=== PATIENT | female | born 1960 | race Caucasian/White ===

== ENCOUNTER 2016-08-01 10:29 | Emergency (ER) | payer BC ==
[2016-08-01 10:40] VITALS: BP 126/86; PULSE 80; TEMP 97.8; BMI 26.0
--- NOTE | 2016-08-01 10:53 | PDOC ---
History of Present Illness - General Chief Complaint: Pain Stated Complaint: PAIN Time Seen by Provider: 08/01/16 10:52 History Source: Patient Exam Limitations: No Limitations - History of Present Illness Initial Comments: CHIEF COMPLAINT: 55 y/o afebrile female with PMH RA c/o left neck, upper back and arm pain since yesterday. HISTORY OF PRESENT ILLNESS: The patient does admit she has been pulling a very heavy work suitcase around with her left arm for the past few weeks and she start feeling a tightness in her left shoulder and neck a few days ago. She has been taking motrin with very little relief. The patient denies trauma, fall , LOC, THOMPSON, changes in vision/hearing, decreased ROM of left arm. Vital signs on arrival are within normal limits. REVIEW OF SYSTEMS: GENERAL/CONSTITUTIONAL: No fever/chills. No weakness. No weight change. GENITOURINARY: No dysuria, frequency, or change in urination. MUSCULOSKELETAL: +left arm and neck pain. +left upper back pain. SKIN: No rash or easy bruising. NEUROLOGIC: No headache, vertigo, loss of consciousness, or loss of sensation. PHYSICAL EXAM: GENERAL: The patient is awake, alert, and fully oriented, in no acute distress. HEAD: Normal with no signs of trauma. NECK: No midline cervical spine TTP or step offs. Full flexion, extension and lateral movements of neck. Pain reproduced with lateral neck movement towards left shoulder. TTP of left cervical paravertebral muscles as well as muscles along left medial scapular border. EYES: Pupils equal, round and reactive to light, extraocular movements intact, sclera anicteric, conjunctiva clear. EXTREMITIES: Normal range of motion, no edema. No TTP of left AC joint. No clavicular tenting. Full ROM of left arm. Equal content designer strength b/l. Equal shoulder shrug b/l. NEUROLOGICAL: Normal speech, normal gait. CN II-XII grossly intact. SKIN: Warm, Dry, normal turgor, no rashes or lesions noted. Past History - Past Medical History Allergies/Adverse Reactions: Allergies Allergy/AdvReac Type Severity Reaction Status Date / Time No Known Allergies Allergy Verified 08/01/16 10:40 Home Medications: Ambulatory Orders Methocarbamol [Robaxin -] 1,000 mg PO TID #20 tablet 08/01/16 Other medical history: arthritis - Immunization History Immunization Up to Date: Yes - Psycho/Social/Smoking Cessation Hx Anxiety: No Suicidal Ideation: No Smoking History: Current every day smoker Have you smoked in the past 12 months: No Number of Cigarettes Smoked Daily: 15 Information on smoking cessation initiated: No Hx Alcohol Use: No Drug/Substance Use Hx: No Substance Use Type: None *Physical Exam - Vital Signs Last Vital Signs Temp Pulse Resp BP Pulse Ox 97.8 F 80 18 126/86 100 08/01/16 10:36 08/01/16 10:36 08/01/16 10:36 08/01/16 10:36 08/01/16 10:36 Medical Decision Making - Medical Decision Making A/P: 55 y/o afebrile female with left cervical radiculopathy and left arm and shoulder pain. Will discharge to home with rx for robaxin. INformed her it may cause drowsiness. Suggested she continue taking motrin with the robaxin, apply heat and massage to affected area, and stretch neck hourly. Instructed her to f/u with her doctor and return to the ER with any worsening or concerning symptoms. The patient verbalizes understanding of all instructions, has no further questions and is awaiting discharge. *DC/Admit/Observation/Transfer Diagnosis at time of Disposition: Cervical radiculopathy, Muscle spasm - Discharge Dispostion Disposition: HOME Condition at time of disposition: Good - Prescriptions Prescriptions: Methocarbamol [Robaxin -] 1,000 mg PO TID #20 tablet - Patient Instructions Printed Discharge Instructions: DI for Cervical Radiculopathy, DI for Back Spasm Additional Instructions: Discharge Instructions: -Take 800mg of Motrin every 8 hours with food -Take Robaxin as prescribed with motrin; may cause drowsiness -Stretch your neck and arm hourly -Apply heating pad and massage to affected area -Return to the ER with any worsening or concerning symptoms. - Post Discharge Activity Work/School Note: Back to Work
[2016-08-01] MEDS ORDERED: METHOCARBAMOL 500 MG TABLET PO ONE (11:04)
[2016-08-01] MEDS ORDERED: METHOCARBAMOL 500 MG TABLET ONE (11:09)
== END 2016-08-01 11:11 | disposition home or self-care (01) ==
LOC: JERFT 10:29 → JER 10:29 → JERFT 11:11
DX: M54.12 Radiculopathy, cervical region (principal); F17.210 Nicotine dependence, cigarettes, uncomplicated; X50.0XXA Overexertion from strenuous movement or load, initial encounter; Y93.89 Activity, other specified; Y92.89 Other specified places as the place of occurrence of the external cause
CPT/HCPCS: 99281-25

== ENCOUNTER 2016-08-02 15:19 | Emergency (ER) | payer BC ==
[2016-08-02 15:45] VITALS: BP 142/81; PULSE 73; TEMP 97.4; BMI 25.7
--- NOTE | 2016-08-02 16:11 | PDOC ---
[id number] 4d REVISIT/ BACK PAIN Time Seen by Provider: 08/02/16 15:55 History Source: Patient Exam Limitations: No Limitations - History of Present Illness Initial Comments: 08/02/16 16:06 55 yr female seen in ER yesterday for same. Pt woke up tuesday morning with stiff neck. Pt denies trauma states the robaxin is not helping and the motrin relieves pain "a little" Pt states pain with moving neck to the left side and flexion. Past History - Past Medical History Allergies/Adverse Reactions: Allergies Allergy/AdvReac Type Severity Reaction Status Date / Time No Known Allergies Allergy Verified 08/01/16 10:40 Home Medications: Ambulatory Orders Methocarbamol [Robaxin -] 1,000 mg PO TID #20 tablet 08/01/16 Diazepam [Valium] 5 mg PO Q8H PRN #6 tablet MDD 15mg 08/02/16 Ibuprofen 800 mg PO TID PRN #20 tablet 08/02/16 Methylprednisolone [Medrol Dose Bg] 4 mg PO ASDIR #21 tablet 08/02/16 GI Disorders: Yes (gastritis) Other medical history: RA - Surgical History Appendectomy: Yes - Immunization History Immunization Up to Date: Yes - Psycho/Social/Smoking Cessation Hx Anxiety: No Suicidal Ideation: No Smoking History: Current every day smoker Have you smoked in the past 12 months: No Number of Cigarettes Smoked Daily: 10 Information on smoking cessation initiated: No Hx Alcohol Use: No Drug/Substance Use Hx: No Substance Use Type: None Trauma Specific PMHX - Complaint Specific PMHX Arthritis: No Back Injury: No Neck Injury: No Hx Sacro Iliac Joint Dysfunction: No Review of Systems - Review of Systems Able to Perform ROS?: Yes Is the patient limited Japanese proficient: No Constitutional: No: Symptoms Reported HEENTM: No: Symptoms Reported Respiratory: No: Symptoms reported Cardiac (ROS): No: Symptoms Reported ABD/GI: No: Symptoms Reported : No: Symptoms Reported Musculoskeletal: Yes: See HPI, Neck Pain Integumentary: No: Symptoms Reported Neurological: No: Symptoms reported *Physical Exam - Vital Signs Last Vital Signs Temp Pulse Resp BP Pulse Ox 97.4 F L 73 20 142/81 100 08/02/16 15:42 08/02/16 15:42 08/02/16 15:42 08/02/16 15:42 08/02/16 15:42 - Physical Exam General Appearance: Yes: Nourished, Appropriately Dressed HEENT: positive: EOMI, SERG, Normal ENT Inspection, TMs Normal, Pharynx Normal Neck: positive: Supple, Decreased range of motion (pain to left trapezius muscle with extension of neck and with turning to left side). negative: Lymphadenopathy (R), Lymphadenopathy (L) Respiratory/Chest: positive: Lungs Clear, Normal Breath Sounds Cardiovascular: positive: Regular Rhythm, Regular Rate Gastrointestinal/Abdominal: positive: Normal Bowel Sounds, Soft Musculoskeletal: positive: Normal Inspection, Muscle Spasm (left upper trapezius ). negative: CVA Tenderness (R), CVA Tenderness (L), Decreased Range of Motion , Vertebral Tenderness Extremity: positive: Normal Capillary Refill, Normal Inspection, Normal Range of Motion Integumentary: positive: Normal Color, Dry, Warm Neurologic: positive: Fully Oriented, Alert, Normal Mood/Affect, Normal Response , Motor Strength 5/5 ED Treatment Course - RADIOLOGY Radiology Studies Ordered: Category Date Time Status SPINE-CERVICAL [RAD] Stat Radiology 08/02/16 16:03 Ordered Medical Decision Making - Medical Decision Making 08/02/16 16:07 cc: upper back pain and neck pain for 3 days worse with movement of neck. no fever no sore throat or diff swallowing or breathing. will get xray of cervical spine 08/02/16 16:12 08/06/16 14:48 *DC/Admit/Observation/Transfer Diagnosis at time of Disposition: Muscle spasm, Cervical radiculopathy - Discharge Dispostion Disposition: HOME Condition at time of disposition: Stable - Prescriptions Prescriptions: Ibuprofen 800 mg PO TID PRN #20 tablet PRN Reason: Moderate Pain Methylprednisolone [Medrol Dose Bg] 4 mg PO ASDIR #21 tablet Diazepam [Valium] 5 mg PO Q8H PRN #6 tablet MDD 15mg PRN Reason: Muscle Spasms - Referrals Referrals: Darrell Vivar MD [Staff Physician] - - Patient Instructions Additional Instructions: frequent warm compresses , apply Icy Hot or BioFreeze rubbing ointment to the area of pain take Valium for spasm as directed DO NOT TAKE ROBAXIN Valium may make you drowsy do not drive, drink alcohol or operate machinery take the medrol dose pack as directed follow with the orthopedist for follow up call today to make appointment
== END 2016-08-02 16:49 | disposition home or self-care (01) ==
LOC: JERFT 15:19
DX: M54.12 Radiculopathy, cervical region (principal); M62.838 Other muscle spasm
CPT/HCPCS: 72050-TC; 99281-25

== ENCOUNTER 2018-06-22 18:42 | Emergency (ER) | payer BC, OTHER ==
[2018-06-22 18:52] VITALS: BMI 19.5
--- NOTE | 2018-06-22 19:07 | PDOC ---
History of Present Illness - General Chief Complaint: Syncope/Near Syncope Stated Complaint: SYNCOPE Time Seen by Provider: 06/22/18 19:06 History Source: Patient Exam Limitations: No Limitations - History of Present Illness Initial Comments: 06/22/18 19:08 57 year old w/ a history of RA and gastritis who presents post op day #3 from total L hip replacement, discharged this morning from [facility] and presents with an approx 4min witnessed episode of loss of consciousness /shaking that occurred while at home and sitting in a chair. The patient reported that she felt diaphoretic and shortness of breath prior to episode and had urinary incontinence during the episode. The patient did not have confusion after the episode. She denied any chest pain, abdominal pain, recent fever, dysuria, hematuria. She does not some redness and warmth around the surgical site that started this AM. She has no other complaints at bedside. Patient smokes 5 cigarettes a day, last smoked this AM Past History - Past Medical History Allergies/Adverse Reactions: Allergies Allergy/AdvReac Type Severity Reaction Status Date / Time No Known Allergies Allergy Verified 06/22/18 18:53 Home Medications: Ambulatory Orders Albuterol Sulfate Inhaler - [Ventolin Hfa Inhaler -] 2 inh PO Q4H PRN 06/23/18 Aspirin [Aspirin EC] 325 mg PO DAILY 06/23/18 Celecoxib [Celebrex -] 200 mg PO BID 06/23/18 Famotidine [Pepcid -] 20 mg PO BID 06/23/18 Fluticasone Propionate [Flovent Diskus] 250 mcg IH BID 06/23/18 Gabapentin 100 mg PO TID 06/23/18 Ketorolac Tromethamine 10 mg PO Q6H PRN 06/23/18 Methocarbamol [Robaxin -] 500 mg PO DAILY 06/23/18 Ondansetron [Zofran Odt -] 4 mg SL Q8H PRN 06/23/18 Oxycodone HCl 5 mg PO Q8H PRN 06/23/18 Polyethylene Glycol 3350 17 gm PO DAILY 06/23/18 Sennosides [Senokotxtra] 17.2 mg PO HS 06/23/18 Tofacitinib Citrate [Xeljanz Xr] 11 mg PO DAILY 06/23/18 COPD: No GI Disorders: Yes (gastritis) Other medical history: rheumathoid arthritis - Surgical History Appendectomy: Yes - Immunization History Immunization Up to Date: Yes - Suicide/Smoking/Psychosocial Hx Smoking History: Current every day smoker Have you smoked in the past 12 months: No Number of Cigarettes Smoked Daily: 10 Information on smoking cessation initiated: No Hx Alcohol Use: No Drug/Substance Use Hx: No Substance Use Type: None Review of Systems - Review of Systems Able to Perform ROS?: Yes Is the patient limited Luxembourgish proficient: No Constitutional: Yes: Diaphoresis. No: Chills, Fever HEENTM: No: Blurred Vision, Tinnitus Respiratory: No: Cough, Orthopnea, Shortness of Breath Cardiac (ROS): Yes: Syncope. No: Chest Pain, Lightheadedness, Palpitations ABD/GI: Yes: Constipated. No: Diarrhea, Nausea, Vomiting : No: Burning, Dysuria, Hematuria Musculoskeletal: No: Gout, Muscle Pain, Muscle Weakness Neurological: No: Headache, Numbness, Tingling *Physical Exam - Vital Signs Last Vital Signs Temp Pulse Resp BP Pulse Ox 78 16 119/76 100 06/22/18 18:49 06/22/18 18:49 06/22/18 18:49 06/22/18 18:49 - Physical Exam Comments: 06/22/18 20:31 GENERAL: Awake, alert, and fully oriented, in no acute distress HEAD: No signs of trauma, normocephalic, atraumatic EYES: EOMI, sclera anicteric, conjunctiva clear ENT: oropharynx clear without exudates. Moist mucosa NECK: Normal ROM, supple LUNGS: No distress, speaks full sentences, slightly coarse breath sounds auscultation bilaterally HEART: Regular rate and rhythm, normal S1 and S2, no murmurs, rubs or gallops, peripheral pulses normal and equal bilaterally. ABDOMEN: Soft, nontender, normoactive bowel sounds. No guarding, no rebound. No masses EXTREMITIES : Normal inspection, Normal range of motion, no edema. No clubbing or cyanosis. L hip surgical dressings w/ erythema and warmth around wound site, but dressing clean dry and intact NEUROLOGICAL: Cranial nerves II through XII grossly intact. Normal speech, no focal sensorimotor deficits SKIN: Warm, Dry, normal turgor, no rashes or lesions noted 06/22/18 21:20 ED Treatment Course - LABORATORY CBC & Chemistry Diagram: 06/22/18 19:53 06/22/18 19:48 Medical Decision Making - Medical Decision Making 06/22/18 20:33 57 year old w/ a history of RA and gastritis who presents post op day #3 from total L hip replacement, discharged this morning from [facility] and presents with an approx 4min witnessed episode of loss of consciousness /shaking that occurred while at home and sitting in a chair. The patient reported that she felt diaphoretic and shortness of breath prior to episode and had urinary incontinence during the episode. ED Course: consider acs vs arrythmia vs PE vs seizure vs electrolyte derangement vs orthostatic cbc, cmp, ddimer, cta chest, ekg, trop, EKG: normal sinus rhythm HR 83, no interval abnormalities, narrow QRS, ST and T wave segments and morphology normal. 06/22/18 21:32 ddimer elevated, cbc, cmp wnl 06/22/18 22:42 patient reports that last time she had contrast she had heart palpitations will hold CTA at this time and will plan for V/Q scan Patient will need to be transferred to [facility] for post op infection and can have V/Q scan done emergently at that tertiary facility 06/23/18 01:09 Patient to transfer to [facility] for further workup and management. 06/23/18 01:37 Patient reassessed feels clammy and diaphoretic fingerstick and ekg Patient without EKG changes, fingerstick in the 100s Patient stable for transfer. *DC/Admit/Observation/Transfer Diagnosis at time of Disposition: Post op infection, Syncope - Discharge Dispostion Disposition: TRANSFER ACUTE CARE/OTHER HOSP Condition at time of disposition: Stable Decision to Admit order: No - Referrals Referrals: ON STAFF,NOT [Primary Care Provider] - - Patient Instructions - Post Discharge Activity - Transfer to Acute Care Facility Receiving Facility: [place] Accepting Physician:: Isac
--- NOTE | 2018-06-22 19:08 | PDOC ---
Attending Attestation - HPI HPI: The patient is a 57 year old female (current smoker- 5 cigarettes per day), with a significant PMH of gastritis and rheumatoid arthritis, who presents to the emergency department today complaining of one episode loss of consciousness with shaking for one day. Patient reports one witnessed episode of losing consciousness and shaking earlier today that lasted for 4 minutes, where she was at home and sitting in a chair. Patient reports urinary incontinence during the episode, and feeling intermittently SOB since . She denies falling or head contusion. Patient She does report being discharged earlier today from [place] for a left total hip replacement, and notes this is her third day post- op. Patient complains that her left hip is warm to touch, red, and swollen. Patient was given 325 aspirin after surgery. She denies having a bowel movement the last few days. The patient denies chest pain, headache and dizziness. Denies fever, nausea, vomit, diarrhea and constipation. Denies dysuria, frequency, and hematuria. Allergies: NKA Past surgical history: Appendectomy and left total hip replacement (done 3 days ago) Social history: No reported PCP: Dr. Steel ([facility]) ([phone]) Surgical orthopedist: Dr. Andrés Espana ([phone]) 06/22/18 23:00 - Physicial Exam PE: GENERAL: Awake, alert, and fully oriented, in no acute distress HEAD: No signs of trauma EYES: PERRLA, EOMI, sclera anicteric, conjunctiva clear ENT: Auricles normal inspection, hearing grossly normal, nares patent, oropharynx clear without exudates. Moist mucosa NECK: Normal ROM, supple, no lymphadenopathy, JVD, or masses LUNGS: Breath sounds equal, clear to auscultation bilaterally. No wheezes, and no crackles HEART: Regular rate and rhythm, normal S1 and S2, no murmurs, rubs or gallops ABDOMEN: Soft, nontender, normoactive bowel sounds. No guarding, no rebound. No masses EXTREMITIES: +Left hip dressing place, with cellulitis around incision sites and lateral left leg. +Lymphangitic spread down left leg toward mid thigh. Normal range of motion, no edema. No clubbing or cyanosis. No cords, erythema, or tenderness NEUROLOGICAL: Cranial nerves II through XII grossly intact. Normal speech, normal gait SKIN: +Left hip dressing place, with cellulitis around incision sites and lateral left leg. +Lymphangitic spread down left leg toward mid thigh. Warm, Dry , normal turgor, no lesions noted. 06/22/18 23:01 - Medical Decision Making 10:44pm- paged [facility] transfer center- awaiting approval for transfer and call back from Dr. Espana 10:59pm- spoke with patient's PCP, agrees with transfer 11:30pm- paged [facility] transfer bard- requesting to speak to IM doc 12:00am- paged [facility] transfer center- requesting ER to ER 12:30am- paged [facility] transfer bard- awaiting call back from ER doc 12:54am- paged Dr. Espana's call service- awaiting call back 12:58am- spoke with [facility] ER Doc concerning patient's transfer Documentation prepared by PADMAJA Vail, acting as medical videographer for Ana Ortez DO. 06/23/18 00:53 <Deisy Bhardwaj - Last Filed: 06/23/18 00:53> - Resident Resident Name: Chantal Yan - ED Attending Attestation I have performed the following: I have examined & evaluated the patient, The case was reviewed & discussed with the resident, I agree w/resident's findings & plan, Exceptions are as noted - Medical Decision Making 06/22/18 19:08 I, Dr. Ana Ortez DO, attest that this document has been prepared under my direction and personally reviewed by me in its entirety. I further attest, that it accurately reflects all work, treatment, procedures and medical decision -making performed by me. 06/22/18 22:41 a/p: 57yo female s/p L hip replacement 2 days ago with worsening leg pain, sob, back pain, and a syncopal episode -concern for PE as cause of syncope -also with redness, spreading of the down the leg and warmth, no drainage -concern for local cellulitis, post op infection -will send labs, ct chest, ekg -will give ivf hydraiton, toradol for pain -will monitor and reassess 06/22/18 22:44 dimer positive pt denies cp 06/22/18 22:[address] [place], but states palpitations with past ct will start abx for post op infection with streaking down the leg call placed to her surgeon at [facility] 06/22/18 22:59 case discussed with pts PMD at [facility] who agrees that patient will need transfer back to [facility]- but she doesn't admit, call placed to the transfer center awaiting call back from surgeon 06/23/18 01:[address] Chau- ED physician at [facility] who accepts pt in transfer pt has signed the transfer consent empress called to assist with transfer 06/23/18 01:42 pt again feels diaphoretic and sob repeat gluc 95 ekg and cxr ordered 06/23/18 01:53 cxr clear <Ana Ortez - Last Filed: 06/23/18 01:53> Heart Score/ECG Review - ECG Intrepretation Comment:: 06/22/18 20:20 sinus at 83, nl axis, nl interval, septal q waves which are age indeterminate- no prior to compare it to, no acute st/t wave findings <Ana Ortez - Last Filed: 06/23/18 01:53>
[2018-06-22 20:06] LABS: BASO % 0.3 % (0-2.0); EOS % 0.9 % (0-4.5); HEMATOCRIT 36.8 % (32.4-45.2); HEMOGLOBIN 12.4 GM/dL (10.7-15.3); LYMPH % 14.9 % (8-40); MCH 30.9 pg (25.7-33.7); MCHC 33.7 g/dl (32.0-36.0); MEAN CELL VOLUME 91.7 fl (80-96); MEAN PLT VOLUME 7.5 fl (7.5-11.1); MONO % 6.2 % (3.8-10.2); NEUT % 77.7 % (42.8-82.8); PLATELET COUNT 199 K/MM3 (134-434); RBC 4.01 M/mm3 (3.60-5.2); RDW 13.5 % (11.6-15.6)
[2018-06-22 20:20] LABS: INR 1.03 (0.83-1.09); PROTHROMBIN TIME (PATIENT) 12.1 SEC (9.7-13.0)
[2018-06-22 20:25] LABS: ACTIVATED PTT 25.6 SECONDS (25.2-36.5)
[2018-06-22] MEDS ORDERED: ACETAMINOPHEN 1000 MG/100 ML VIAL (NON FORMULARY) IVPB ONE (20:53)
[2018-06-22] MEDS ORDERED: KETOROLAC TROMETHAMINE 15 MG/ML VIAL IVPUSH ONE (21:19)
[2018-06-22] MEDS ORDERED: SODIUM CHLORIDE 1,000 ML IV SCH (21:30)
[2018-06-22 21:31] LABS: ALK PHOS 114 U/L (45-117); ANION GAP 9 MMOL/L (8-16); BILIRUBIN,TOTAL 0.8 mg/dL (0.2-1); BLOOD UREA NITROGEN 10 mg/dL (7-18); CALCIUM 8.2 mg/dL (8.5-10.1); CHLORIDE 103 mmol/L (98-107); CO2 23 mmol/L (21-32); CREATININE 0.7 mg/dL (0.55-1.3); GLUCOSE,RANDOM 96 mg/dL (74-106); POTASSIUM 3.9 mmol/L (3.5-5.1); SGOT/AST 34 U/L (15-37); SGPT/ALT 15 U/L (13-61); SODIUM 135 mmol/L (136-145); TOT PROT 6.1 g/dl (6.4-8.2)
[2018-06-22] MEDS ORDERED: KETOROLAC TROMETHAMINE 15 MG/ML VIAL ONE (21:49)
[2018-06-22] MEDS ORDERED: ACETAMINOPHEN INJECTION 100 ML IVPB ONE (21:50)
[2018-06-22] MEDS ORDERED: VANCOMYCIN 1,000 MG in DEXTROSE 5%-WATER - 250 ML IVPB ONE (22:40)
[2018-06-22] MEDS ORDERED: VANCOMYCIN 1 GRAM (PRE-DOCKED) 1,000 MG/250 ML BAG IVPB ONE ×2 (23:19→23:24)
[2018-06-23] MEDS ORDERED: morphine CARPU-JECT 4 MG/1 ML DISP.SYRIN IVPUSH ONE (00:27)
[2018-06-23 02:43] VITALS: BP 121/76; PULSE 72; TEMP 98
--- NOTE | 2018-06-23 12:14 | EKG ---
Test Reason : Blood Pressure : / mmHG Vent. Rate : 071 BPM Atrial Rate : 071 BPM P-R Int : 170 ms QRS Dur : 080 ms QT Int : 424 ms P-R-T Axes : 057 058 051 degrees QTc Int : 460 ms NORMAL SINUS RHYTHM SEPTAL INFARCT , AGE UNDETERMINED ABNORMAL ECG NO PREVIOUS ECGS AVAILABLE Confirmed by ARVIN JAMES MD ([id number]) on 06/23/2018 12:13:39 PM Referred By: Confirmed By:ARVIN JAMES MD
--- NOTE | 2018-06-23 12:22 | EKG ---
Test Reason : Blood Pressure : / mmHG Vent. Rate : 083 BPM Atrial Rate : 083 BPM P-R Int : 160 ms QRS Dur : 076 ms QT Int : 380 ms P-R-T Axes : 056 066 055 degrees QTc Int : 446 ms NORMAL SINUS RHYTHM SEPTAL INFARCT , AGE UNDETERMINED ABNORMAL ECG NO PREVIOUS ECGS AVAILABLE Confirmed by ARVIN JAMES MD ([id number]) on 06/23/2018 12:22:33 PM Referred By: PAULINA Confirmed By:ARVIN JAMES MD
== END 2018-06-23 02:36 | disposition short-term general hospital (02) ==
LOC: JER 18:42
PROC: 3E03329 Introduction of Other Anti-infective into Peripheral Vein, Percutaneous Approach (ICD-10-PCS; principal; 2018-06-22)
PROC: 3E033NZ Introduction of Analgesics, Hypnotics, Sedatives into Peripheral Vein, Percutaneous Approach (ICD-10-PCS; 2018-06-22)
PROC: 3E0333Z Introduction of Anti-inflammatory into Peripheral Vein, Percutaneous Approach (ICD-10-PCS; 2018-06-22)
DX: T81.41XA Infection following a procedure, superficial incisional surgical site, initial encounter (principal); Z96.641 Presence of right artificial hip joint
CPT/HCPCS: 36415; 71045-TC-FY; 80053; 82962; 84484; 85025; 85379; 85610; 85730; 93005; 93010; 99284-25; J0131; J7030

== ENCOUNTER 2018-07-26 14:42 | Emergency (ER) | payer OTHER ==
[2018-07-26] MEDS ORDERED: ASPIRIN 81 MG CHEWABLE TABLETS PO ONE (14:49)
--- NOTE | 2018-07-26 14:49 | PDOC ---
Rapid Medical Evaluation Time Seen by Provider: 07/26/18 14:47 Medical Evaluation: Allergies Allergy/AdvReac Type Severity Reaction Status Date / Time No Known Allergies Allergy Verified 06/22/18 18:53 07/26/18 14:47 HPI: 1 months s/p L CARLOTTA with lightheadedness and SOB PE: Anxious Orders: Cardiac work up Discharge Disposition - Diagnosis SOB (shortness of breath) - Referrals - Patient Instructions - Post Discharge Activity
[2018-07-26 14:52] VITALS: BP 115/57; PULSE 94; TEMP 97.3; BMI 23.0
[2018-07-26 15:33] LABS: BASO % 1.1 % (0-2.0); EOS % 1.5 % (0-4.5); HEMATOCRIT 42.2 % (32.4-45.2); HEMOGLOBIN 14.3 GM/dL (10.7-15.3); LYMPH % 40.5 % (8-40); MCH 30.3 pg (25.7-33.7); MEAN CELL VOLUME 89.1 fl (80-96); MEAN PLT VOLUME 7.3 fl (7.5-11.1); NEUT % 51.9 % (42.8-82.8); PLATELET COUNT 389 K/MM3 (134-434); RBC 4.74 M/mm3 (3.60-5.2); RDW 13.5 % (11.6-15.6); WHITE BLOOD COUNT 9.9 K/mm3 (4.0-10.0)
--- NOTE | 2018-07-26 15:36 | PDOC ---
History of Present Illness - General History Source: Patient Exam Limitations: No Limitations - History of Present Illness Initial Comments: 07/26/18 15:37 57 year old woman (current smoker- 5 cigarettes per day), with a significant PMH of gastritis, rheumatoid arthritis, and L total hip replacement 1 month ago who presents feeling lightheaded, nauseous, short of breath and tingling in the hadns that occurred while at the grocery store and lasting for 2-5min. She felt like she might pass out so she called EMS. She reports that she had overworked herself at physical therapy today and was commuting and wlkaing around for most of the day and had not eaten anything since this morning. After EMS was called she had resolution of symptoms and upon arrival to the ED she ate a bagel and began feeling much better. She believes her symptoms were most likely part panic attack and part dehydration as she has been anxious lately due to being cooped in her house for rehab of her hip. She deneis any recent fever, chest pain, abdominal pain, v/d/c. She has no other complaints at bedside. Of note in history patient was seen her 1 month ago for loc, had an elevated ddimer and concern over surgical site infection and was transferred to [facility] was negative PE workup and without abx admin. She has been stable since discharge but notes some occasional variabilty in BP over the past month. She is not currently on AC She attend PE regularly <Chantal Yan - Last Filed: 07/26/18 16:05> <Pratik Christine - Last Filed: 07/26/18 17:44> - General Chief Complaint: Syncope/Near Syncope Stated Complaint: SOB Time Seen by Provider: 07/26/18 14:47 Past History - Past Medical History COPD: No GI Disorders: Yes (gastritis) Psychiatric Problems: Yes (ANXIETY) - Surgical History Appendectomy: Yes - Immunization History Immunization Up to Date: Yes - Suicide/Smoking/Psychosocial Hx Smoking History: Never smoked Have you smoked in the past 12 months: No Number of Cigarettes Smoked Daily: 10 Hx Alcohol Use: No Drug/Substance Use Hx: No Substance Use Type: None <Chantal Yan - Last Filed: 07/26/18 16:05> <Pratik Christine - Last Filed: 07/26/18 17:44> - Past Medical History Allergies/Adverse Reactions: Allergies Allergy/AdvReac Type Severity Reaction Status Date / Time No Known Allergies Allergy Verified 07/26/18 14:48 Home Medications: Ambulatory Orders Albuterol Sulfate Inhaler - [Ventolin Hfa Inhaler -] 2 inh PO Q4H PRN 06/23/18 Aspirin [Aspirin EC] 325 mg PO DAILY 06/23/18 Celecoxib [Celebrex -] 200 mg PO BID 06/23/18 Famotidine [Pepcid -] 20 mg PO BID 06/23/18 Fluticasone Propionate [Flovent Diskus] 250 mcg IH BID 06/23/18 Gabapentin 100 mg PO TID 06/23/18 Ketorolac Tromethamine 10 mg PO Q6H PRN 06/23/18 Methocarbamol [Robaxin -] 500 mg PO DAILY 06/23/18 Ondansetron [Zofran Odt -] 4 mg SL Q8H PRN 06/23/18 Oxycodone HCl 5 mg PO Q8H PRN 06/23/18 Polyethylene Glycol 3350 17 gm PO DAILY 06/23/18 Sennosides [Senokotxtra] 17.2 mg PO HS 06/23/18 Tofacitinib Citrate [Xeljanz Xr] 11 mg PO DAILY 06/23/18 Review of Systems - Review of Systems Comments:: 07/26/18 15:38 GENERAL/CONSTITUTIONAL: No fever or chills. No weakness. HEAD, EYES, EARS, NOSE AND THROAT: No change in vision. No ear pain or discharge. No sore throat. CARDIOVASCULAR: No chest pain , + shortness of breath RESPIRATORY: No cough, wheezing, or hemoptysis. GASTROINTESTINAL: + nausea, No vomiting, diarrhea or constipation. GENITOURINARY: No dysuria, frequency, or change in urination. MUSCULOSKELETAL: No joint or muscle swelling or pain. No neck or back pain. SKIN: No rash NEUROLOGIC: No headache, vertigo, loss of consciousness, or change in strength/ sensation. ENDOCRINE: No increased thirst. No abnormal weight change HEMATOLOGIC/LYMPHATIC: No anemia, easy bleeding, or history of blood clots. ALLERGIC/IMMUNOLOGIC: No hives or skin allergy. <Chantal Yan - Last Filed: 07/26/18 16:05> *Physical Exam - Vital Signs Last Vital Signs Temp Pulse Resp BP Pulse Ox 97.3 F L 94 H 16 115/57 L 95 07/26/18 14:49 07/26/18 14:49 07/26/18 14:49 07/26/18 14:49 07/26/18 14:49 - Physical Exam Comments: 07/26/18 15:38 GENERAL: Awake, alert, and fully oriented, in no acute distress, anxious appearing HEAD: No signs of trauma, normocephalic, atraumatic EYES: PERRLA, EOMI, sclera anicteric, conjunctiva clear ENT: oropharynx clear without exudates. Moist mucosa NECK: Normal ROM, supple LUNGS: No distress, speaks full sentences, clear to auscultation bilaterally HEART: Regular rate and rhythm, normal S1 and S2, no murmurs, rubs or gallops, peripheral pulses normal and equal bilaterally. ABDOMEN: Soft, nontender, normoactive bowel sounds. No guarding, no rebound. No masses EXTREMITIES : Normal inspection, Normal range of motion, no edema. No clubbing or cyanosis. NEUROLOGICAL: Cranial nerves II through XII grossly intact. Normal speech, normal gait, no focal sensorimotor deficits SKIN: Warm, Dry, normal turgor, no rashes or lesions noted <Chantal Yan - Last Filed: 07/26/18 16:05> - Vital Signs Last Vital Signs Temp Pulse Resp BP Pulse Ox 97.3 F L 94 H 16 115/57 L 95 07/26/18 14:49 07/26/18 14:49 07/26/18 14:49 07/26/18 14:49 07/26/18 14:49 <Pratik Christine - Last Filed: 07/26/18 17:44> ED Treatment Course - LABORATORY CBC & Chemistry Diagram: 07/26/18 15:00 07/26/18 15:00 <Chantal Yan - Last Filed: 07/26/18 16:05> - LABORATORY CBC & Chemistry Diagram: 07/26/18 15:00 07/26/18 15:00 - ADDITIONAL ORDERS Additional order review: Laboratory Results 07/26/18 07/26/18 07/26/18 15:00 15:00 15:00 PT with INR 12.70 INR 1.08 D-Dimer 6555 H Sodium 139 Potassium 4.3 Chloride 106 Carbon Dioxide 24 Anion Gap 9 BUN 8 Creatinine 0.7 Est GFR (CKD-EPI)AfAm 110.69 Est GFR (CKD-EPI)NonAf 95.50 Random Glucose 110 H Calcium 10.1 Magnesium 2.1 Total Bilirubin 0.8 AST 16 ALT 15 Alkaline Phosphatase 132 H Creatine Kinase 66 Troponin I < 0.02 Total Protein 7.4 Albumin 4.0 07/26/18 15:00 RBC 4.74 MCV 89.1 MCHC 34.0 RDW 13.5 MPV 7.3 L Neutrophils % 51.9 D Lymphocytes % 40.5 H D Monocytes % 5.0 Eosinophils % 1.5 Basophils % 1.1 D <Pratik Christine - Last Filed: 07/26/18 17:44> Medical Decision Making - Medical Decision Making 07/26/18 15:38 57 year old woman (current smoker- 5 cigarettes per day), with a significant PMH of gastritis, rheumatoid arthritis, and L total hip replacement 1 month ago who presents feeling lightheaded, nauseous, short of breath and tingling in the hadns that occurred while at the grocery store and lasting for 2-5min. She felt like she might pass out so she called EMS. She reports that she had overworked herself at physical therapy today and was commuting and wlkaing around for most of the day and had not eaten anything since this morning. After EMS was called she had resolution of symptoms and upon arrival to the ED she ate a bagel and began feeling much better. She believes her symptoms were most likely part panic attack and part dehydration as she has been anxious lately due to being cooped in her house for rehab of her hip. ED Course: ddx inblt: acs vs arrythmia vs pe vs electrolyte derangement vs orthostatic Patient cannot be ruled out for PE 2/2 PERC patient requests defer CXR EKG: labwork wnl aside from elevated d dimer 07/26/18 16:50 Patient left prior to discharge. Multiple attempts to contact patient made - unsuccessfully. Patient callback made for pending labs. Will advise to follow up with PCP. <Chantal Yan - Last Filed: 07/26/18 16:05> *DC/Admit/Observation/Transfer <Chantal Yan - Last Filed: 07/26/18 16:05> <Pratik Christine - Last Filed: 07/26/18 17:44> Diagnosis at time of Disposition: Pre-syncope - Discharge Dispostion Disposition: ELOPED - Referrals Referrals: ON STAFF,NOT [Primary Care Provider] - - Patient Instructions - Post Discharge Activity
[2018-07-26 16:09] LABS: ALK PHOS 132 U/L (45-117); ANION GAP 9 MMOL/L (8-16); BILIRUBIN,TOTAL 0.8 mg/dL (0.2-1); BLOOD UREA NITROGEN 8 mg/dL (7-18); CALCIUM 10.1 mg/dL (8.5-10.1); CHLORIDE 106 mmol/L (98-107); CO2 24 mmol/L (21-32); CREATININE 0.7 mg/dL (0.55-1.3); GLUCOSE,RANDOM 110 mg/dL (74-106); MAGNESIUM 2.1 mg/dL (1.8-2.4); POTASSIUM 4.3 mmol/L (3.5-5.1); SGOT/AST 16 U/L (15-37); SGPT/ALT 15 U/L (13-61); SODIUM 139 mmol/L (136-145); TOT PROT 7.4 g/dl (6.4-8.2)
--- NOTE | 2018-07-26 16:39 | PDOC ---
Attending Attestation - Resident Resident Name: Chantal Yan - ED Attending Attestation I have performed the following: I have examined & evaluated the patient, The case was reviewed & discussed with the resident, I agree w/resident's findings & plan, Exceptions are as noted - HPI HPI: 07/26/18 16:41 57 y/o female with hx/o smoking, RA, 4 weeks post left total hip replacement presented by EMS after an episode of nausea, lightheadedness, and sob that resolved upon arrival. pt denies cp/v/d/fever/chills. pt had been evaluated in this ED previously for syncope with PE rule out. - Physicial Exam PE: 07/26/18 16:43 pt is awake, alert, nad nc, atr perrla, eomi mm-dry rrr cta no LEs edema - Medical Decision Making 07/26/18 16:43 57 y/o female with hx/o smoking/RA, s/p left total hip rep presents with n/sob/ weakness. in the ED, pt is well appearing, with nl vs, no evidence of focal neuro deficits. EKG with q waves in V1-V2, bordeline prolonged QTc, no evidence of right heart strain. D-dimer obtained in RME was elevated, will get LE doppler US, consider repeat cta. 07/26/18 17:43 Patient eloped prior to completion of her evaluation. Several attempts to contact her by phone were unsuccessful.
[2018-07-26] MEDS ORDERED: ASPIRIN 81 MG CHEWABLE TABLETS ONE (16:44)
[2018-07-26 17:22] LABS: INR 1.08 (0.83-1.09); PROTHROMBIN TIME (PATIENT) 12.7 SEC (9.7-13.0)
--- NOTE | 2018-07-27 17:19 | EKG ---
Test Reason : Blood Pressure : / mmHG Vent. Rate : 083 BPM Atrial Rate : 083 BPM P-R Int : 152 ms QRS Dur : 074 ms QT Int : 412 ms P-R-T Axes : 068 071 069 degrees QTc Int : 484 ms POOR DATA QUALITY, INTERPRETATION MAY BE ADVERSELY AFFECTED NORMAL SINUS RHYTHM PROLONGED QT ABNORMAL ECG WHEN COMPARED WITH ECG OF 23-JUN-2018 01:53, NO SIGNIFICANT CHANGE WAS FOUND Confirmed by LISA ORTIZ, REGGIE ([id number]) on 07/27/2018 5:18:56 PM Referred By: Confirmed By:REGGIE GONZALEZ MD
== END 2018-07-26 17:24 | disposition left against medical advice (07) ==
LOC: JER 14:42
DX: R55 Syncope and collapse (principal); M06.80 Other specified rheumatoid arthritis, unspecified site; Z96.642 Presence of left artificial hip joint; Z87.19 Personal history of other diseases of the digestive system
CPT/HCPCS: 36415; 80053; 82550; 83735; 84484; 85025; 85379; 85610; 93005; 93010; 99282-25

== ENCOUNTER 2020-08-16 22:49 | Emergency (ER) | payer SELFPAY ==
[2020-08-16 22:56] VITALS: BP 113/75; PULSE 78; TEMP 99.2; BMI 24.7
[2020-08-16] MEDS ORDERED: morphine CARPU-JECT 4 MG/1 ML DISP.SYRIN IVPUSH ONE (23:16)
[2020-08-16] MEDS ORDERED: ACETAMINOPHEN 500 MG TABLET (FP) PO ONE (23:21)
[2020-08-16] MEDS ORDERED: morphine SULFATE 4 MG/ML VIAL ONE (23:22)
[2020-08-16] MEDS ORDERED: IBUPROFEN 400 MG TABLET (FP) PO ONE ×2 (23:33→23:37)
[2020-08-17] MEDS ORDERED: LIDOCAINE 5% TOPICAL PATCH TP ONE (00:17)
[2020-08-17] MEDS ORDERED: LIDOCAINE 5% TOPICAL PATCH ONE (00:20)
[2020-08-17] MEDS ORDERED: LIDOCAINE PATCH REMOVAL MC SCH (22:00)
== END 2020-08-17 00:46 | disposition home or self-care (01) ==
LOC: JER 22:49
DX: M25.552 Pain in left hip (principal)
CPT/HCPCS: 73523-TC-FY; 73552-TC-LT-FY; 99284-25

== ENCOUNTER → 2022-09-15 | Day surgery (SDC) | payer OTHER | END | disposition home or self-care (01) | LOC: JRADUS-SUR 11:06 | PROVIDERS: ATTEND Internal Medicine | PROC: 0H9U3ZX Drainage of Left Breast, Percutaneous Approach, Diagnostic (ICD-10-PCS; principal; 2022-09-15) | DX: C50.912 Malignant neoplasm of unspecified site of left female breast (principal) | CPT/HCPCS: 19083; 77065-TC; 87899; 88305-TC; 88341-TC; 88342-TC; A4648 ==